=== PATIENT | female | born 1995 | race Caucasian/White ===

== ENCOUNTER → 2023-02-10 | Outpatient (CLI) | payer BC ==
--- NOTE | 2023-02-10 22:14 | MR ---
EXAMINATION TYPE: MR pelvis wo con DATE OF EXAM: 02/10/2023 COMPARISON: None CLINICAL INDICATION:Female, 27 years old with history of Q51.9; Uterine abnormality, Septate uterus. TECHNIQUE: Triplane multisequence imaging was performed of the pelvis. IV Contrast: None FINDINGS: Reproductive: Vagina: There is a possible septation that runs longitudinally through the vagina best appreciated on series 601 image 13. Uterus: The uterus is retroverted in position. Uterus measures 7.3 x 4.2 x 5.5 cm. There is a complet e septate uterus morphology to the uterus with smooth contoured uterine fundus. There are 2 cervical os which extends into the vagina best appreciated on series 401 image 13 and the other on 12. The end ometrium isn't junctional zones are within normal limits. There is intermediate T1/T2 and low signal fibroids present measuring up to 10 mm on the left anterio r aspect. Ovaries: The right ovary demonstrates large follicle measuring up to 2.9 cm. The ovary in totality me asures 3.4 x 3.1 x 2.3 cm. The left ovary measures 2.5 x 1.5 x 1.3 cm. Bladder: Unremarkable. Bowel: Unremarkable as visualized. Peritoneum: A small amount of free fluid in the pelvis. Lymph nodes: No evidence of adenopathy. Vasculature: Unremarkable. Musculoskeletal: Bone marrow signal is within normal signal intensity. Abdominal wall/soft tissues: Unremarkable. IMPRESSION: 1. 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 Correlate with physical for septate vagina. 2. Small anterior fibroid. 3. Right ovarian dominant follicle.
== END | disposition home or self-care (01) ==
LOC: RADMRIMAIN 21:00
PROVIDERS: ATTEND Obstetrics & Gynecology
DX: Q51.21 Complete doubling of uterus (principal); Q52.129 Other and unspecified longitudinal vaginal septum; N93.9 Abnormal uterine and vaginal bleeding, unspecified; D25.9 Leiomyoma of uterus, unspecified
CPT/HCPCS: 72195

== ENCOUNTER → 2025-05-15 | Outpatient (CLI) | payer BC ==
--- NOTE | 2025-05-15 12:08 | MM ---
Reason for Exam: Screening (asymptomatic). Patient History: Menarche at age 14. Patient has no children. Mother had breast cancer, age 39. Last menstrual period: 05/06/2025 Prior Study Comparison: 10/06/2017 Left Diagnostic Ultrasound, [facility]. Tissue Density: The breasts are extremely dense, which lowers the sensitivity of mammography. Findings: Analyzed By CAD. Right breast: There is no suspicious group of microcalcifications or new suspicious mass. Left breast: There is no suspicious group of microcalcifications or new suspicious mass. Overall Assessment: Negative, BI-RAD 1 Management: Screening Mammogram of both breasts at age 41. [facility] will attempt to contact patient to return for supplemental views and ultrasound if indicated. Patient should continue monthly self-breast exams. A clinical breast exam by your physician is recommended on an annual basis. This exam should not preclude additional follow-up of suspicious palpable abnormalities. Note on Jigna scores and lifetime risk: 1. A Jigna score greater than 3% is considered moderate risk. If this is the case, consider specialist referral to assess eligibility for a risk reducing agent. 2. If overall lifetime risk for the development of breast cancer is 20% or higher, the patient may qualify for future screening with alternating mammogram and breast MRI. [facility], , 05/15/2025 12:05 PM. Electronically signed and approved by: Shay Villavicencio DO
== END | disposition home or self-care (01) ==
LOC: RADMAMWWP 06:51
PROVIDERS: ATTEND Obstetrics & Gynecology
DX: Z12.31 Encounter for screening mammogram for malignant neoplasm of breast (principal); R92.343 Mammographic extreme density, bilateral breasts; Z80.3 Family history of malignant neoplasm of breast
CPT/HCPCS: 77063; 77067